=== PATIENT | male | born 1985 | race Hispanic/Latino ===

== ENCOUNTER 2016-10-05 18:29 | Emergency (ER) | payer OTHER ==
[2016-10-05 19:31] LABS: Basophils % (Auto) 1.3 % (0.0-1.8); Eosinophils % (Auto) 2.9 % (0.0-4.3); Hematocrit 45.5 % (35.5-45.6); Hemoglobin 15.9 gm/dl (11.8-15.2); Mean Corpuscular HGB Conc 35 % (32-34); Mean Corpuscular Hemoglobin 31 pg (28-32); Mean Corpuscular Volume 89 fl (84-94); Platelet Count 266 K/mm3 (140-440); Red Blood Count 5.12 M/mm3 (3.65-5.03); Red Cell Distribution Width 12.4 % (13.2-15.2)
[2016-10-05 19:49] LABS: Anion Gap 21 mmol/L; Blood Urea Nitrogen 12 mg/dL (9-20); Calcium 9.5 mg/dL (8.4-10.2); Carbon Dioxide 24 mmol/L (22-30); Chloride 96.6 mmol/L (98-107); Glucose 105 mg/dL (75-100); Potassium 3.4 mmol/L (3.6-5.0); Sodium 138 mmol/L (137-145)
[2016-10-05 21:16] LABS: Urine Drugs of Abuse Note Disclamer
[2016-10-05 21:31] LABS: Bilirubin,Urine NEG (Negative); Blood,Urine NEG (Negative); Ketones,Urine NEG (Negative); Leukocyte Esterase,Urine NEG (Negative); Nitrite,Urine NEG (Negative); Protein,Urine <15 mg/dL mg/dL (Negative); Urobilinogen,Urine < 2.0 mg/dL (<2.0)
[2016-10-05] MEDS ORDERED: TYLENOL #3 PO ONE (21:37)
[2016-10-05] MEDS ORDERED: NACL 0.9% 1000 ML 1,000 ML IV ONE (22:26)
--- NOTE | 2016-10-06 01:37 | Emergency Department Report ---
HPI - General Chief Complaint: Psych Time Seen by Provider: 10/05/16 20:57 - HPI HPI: The patient is a 31-year-old male who presents for evaluation of mental health. The patient reports experiencing sadness, severe, constant, for the past 4 days, and associated with constant severe thoughts of people from an online gambling site stalking him. The patient denies fever, headache, unexplained weight loss or weight gain, heat or cold intolerance, skin, hair, or nail changes, neuro deficits, homicidal ideations. ED Past Medical Hx - Past Medical History Hx Psychiatric Treatment: Yes Additional medical history: anxiety. psychosis. major depressive mood disorder. insomnia. paranoid schizophrenia - Surgical History Additional Surgical History: Right wrist - Social History Smoking Status: Never Smoker Substance Use Type: Alcohol - Medications Home Medications: Home Medications Medication Instructions Recorded Confirmed Last Taken Type Unobtainable 07/09/15 07/09/15 Unknown History ED Review of Systems ROS: Stated complaint: PSYCH EVAL Other details as noted in HPI Constitutional: denies: fever ENT: denies: throat or neck pain Respiratory: denies: cough, shortness of breath Cardiovascular: denies: chest pain Endocrine: denies unexplained weight loss or gain Gastrointestinal: denies: abdominal pain, nausea Genitourinary: denies: dysuria Musculoskeletal: denies: leg swelling Skin: denies: rash Neurological: denies: headache Hematological/Lymphatic: denies: easy bleeding or easy bruising Psych: reports sadness and hopelessness Physical Exam - Physical Exam Vital Signs: Vital Signs 10/05/16 10/05/16 19:07 21:37 Temperature 98.5 F Pulse Rate 81 Respiratory 18 16 Rate Blood Pressure 148/103 O2 Sat by Pulse 100 98 Oximetry Physical Exam: General: well-nourished, well-developed, no acute distress Head: Normocephalic, atraumatic Eyes: normal sclera ENT: Mucous membranes are pink and moist Neck: trachea midline, neck supple, No neck stiffness, no cervical adenopathy Respiratory: Breath sounds equal bilaterally, no wheezing, rales, or rhonchi Cardio: S1 and S2 present, no murmurs, rubs, gallops, capillary refill is brisk Abdomen: Normoactive bowel sounds, soft abdomen, no rigidity, no guarding or rebound tenderness Chest WALL/Back: No tenderness to palpation of the chest wall, no CVA tenderness with percussion Musc: No pitting edema Skin: No rash Neuro: no facial drooping, normal speech Psych: Flat affect, poor insight, patient delusional ED Course Vital Signs 10/05/16 10/05/16 19:07 21:37 Temperature 98.5 F Pulse Rate 81 Respiratory 18 16 Rate Blood Pressure 148/103 O2 Sat by Pulse 100 98 Oximetry ED Medical Decision Making - Lab Data Result diagrams: 10/05/16 19:21 10/05/16 19:21 - Medical Decision Making The patient was seen and examined by myself. The patient is placed on a slitting and shipping supervisor and continuous pulse ox. On initial evaluation, the patient was found to be in no distress. Labs are obtained. Lab results revealed elevated alcohol level of 0.10, and elevated RBC, hemoglobin, hematocrit, consistent with dehydration, and otherwise labs were grossly unremarkable. The patient is given 1 Lfluid bolus for treatment of his dehydration. The patient is medically clear. Mental health is consulted. Mental health evaluates the patient and agrees that the patient is positive for findings consistent with acute psychosis paranoia. A 1013 is completed. The patient will be admitted to a psychiatric facility once bed placement is obtained. Critical care attestation.: If time is entered above; I have spent that time in minutes in the direct care of this critically ill patient, excluding procedure time. ED Disposition Clinical Impression: Acute psychosis, Dehydration, Hypertensive urgency Disposition: DC/TX PSY HOSP/PSY UNIT Is pt being admited?: No Does the pt Need Aspirin: No Condition: Stable Referrals: PRIMARY CARE [Primary Care Provider] - 3-5 Days Time of Disposition: 01:41
[2016-10-06] MEDS ORDERED: TYLENOL PO PRN (01:45)
[2016-10-06] MEDS ORDERED: MILK OF MAGNESIA PO PRN (01:45)
[2016-10-06] MEDS ORDERED: ALUM-MAG HYDROX-SIMETH 200-200-20MG/5ML PO PRN (01:45)
[2016-10-06] MEDS: NORVASC PO SCH ×2 (02:33→10:16)
--- NOTE | 2016-10-06 10:29 | XRay Report ---
AP CHEST: HISTORY: chest pain AP view of the chest demonstrates a normal mediastinal and cardiac contour with clear lungs and normal bony and soft tissue structures. IMPRESSION: Unremarkable AP chest.
--- NOTE | 2016-10-06 15:37 | Consultation ---
History of Present Illness - Reason for Consult Consult date: 10/06/16 Reason for consult: psychiatric evaluation, psychosis - Chief Complaint Chief complaint: "I get agitated easily" The patient is a 31-year-old disheveled white male seen in the ED for psychiatric evaluation. The record indicates the patient reported sadness, severe, constant, for the past 4 days, and associated with constant severe thoughts of people from an online gambling site stalking him. When asked about the gambling site, he states "That's real, they don't want to make themselves known." He states people follow him and taunt him. He reports becoming agitated easily and will hit objects. He has been to correction for violent behavior in the past. He reports drinking alcohol once every 2 weeks and denies illicit substance use. He reports lack of access to food/money. He has been to more than 10 hospitals for crisis stabilization in [place]. ED Past Medical Hx - Past Medical History denies - Surgical History Additional Surgical History: Right wrist - Social History Smoking Status: 1/2 PPD Substance Use Type: Alcohol every 2 weeks-no withdrawal -Psychiatric history multiple psychiatric hospitalizations Medications and Allergies Allergies Allergy/AdvReac Type Severity Reaction Status Date / Time No Known Allergies Allergy Unverified 07/09/15 18:03 Home Medications Medication Instructions Recorded Confirmed Last Taken Type Unobtainable 10/06/16 10/06/16 Unknown History Active Meds: Active Medications Acetaminophen (Tylenol) 650 mg PO Q4HR PRN PRN Reason: Pain MILD(1-3)/Fever >100.5/MORE[place] Al Hydrox/Mg Hydrox/Simethicone (Alum-Mag Hydrox-Simeth [id number]/5ml) 30 ml PO Q4HR PRN PRN Reason: Indigestion Amlodipine Besylate (Norvasc) 5 mg PO QDAY [facility] Last Admin: 10/06/16 10:16 Dose: Not Given Magnesium Hydroxide (Milk Of Magnesia) 30 ml PO Q12HR PRN PRN Reason: Constipation Mental Status Exam - Vital signs Last Vital Signs Temp 98.5 F 10/06/16 09:52 Pulse 75 10/06/16 10:16 Resp 18 10/06/16 09:52 BP 114/74 10/06/16 10:16 Pulse Ox 98 10/06/16 09:52 - Exam Orientation: time, place, person Affect: flat, depressed Mood: congruent with affect Thought content: delusions, paranoia Thought Process: Loose Associations Perceptions: auditory ("voices off and on") Speech: normal rate and pattern Concentration: distractible Motor activity: tense Level of consciousness: alert Memory: Intact Sleep Symptoms: Difficulty Falling Asleep Appetite: decreased Interaction: cooperative Results Result Diagrams: 10/05/16 19:21 10/05/16 19:21 Abnormal lab results 10/05/16 10/05/16 10/05/16 Range/Units 19:21 19:21 21:10 WBC 12.0 H (4.5-11.0) K/mm3 RBC 5.12 H (3.65-5.03) M/mm3 Hgb 15.9 H (11.8-15.2) gm/dl MCHC 35 H (32-34) % RDW 12.4 L (13.2-15.2) % Baso # 0.2 H (0.0-0.1) K/mm3 Seg Neutrophils # 7.8 H (1.8-7.7) K/mm3 Glucose 105 H (75-100) mg/dL Ur Specific [place] 1.002 L (1.003-1.030) Plasma/Serum Alcohol (0-0.07) gm% 10/05/16 Range/Units 21:32 WBC (4.5-11.0) K/mm3 RBC (3.65-5.03) M/mm3 Hgb (11.8-15.2) gm/dl MCHC (32-34) % RDW (13.2-15.2) % Baso # (0.0-0.1) K/mm3 Seg Neutrophils # (1.8-7.7) K/mm3 Glucose (75-100) mg/dL Ur Specific [place] (1.003-1.030) Plasma/Serum Alcohol 0.11 H (0-0.07) gm% All other labs normal. Assessment and Plan Assessment and plan: Impression: Acute depressive symptoms with high risk of harm to self as evidenced by SI and psychotic symptoms Inability to care self Schizophrenia, paranoid type-unclear if he is med compliant alcohol use-no clear criteria for alcohol use disorder Recommendation: 1013 and transfer to inpatient psychiatric facility Start Risperdal 1mg hs for mood/psychotic symptoms trazodone 50mg hs for insomnia Ativan 0.5mg bid per home dose
[2016-10-06] MEDS: ATIVAN PO SCH (22:00)
[2016-10-06] MEDS: DESYREL PO SCH (22:00)
[2016-10-06] MEDS: RisperDAL PO SCH (22:01)
[2016-10-07] MEDS ORDERED: NACL 0.9% 500 ML 500 ML IV ONE (00:16)
--- NOTE | 2016-10-07 09:16 | Progress Note ---
Subjective - Reason for Consult Consult date: 10/07/16 Reason for consult: Psychiatry Follow-up - Chief Complaint Chief complaint: "I feel safe now" The patient is a 31-year-old disheveled white male seen in the ED for psychiatric evaluation. Today patient is calm and cooperative during the assessment. He stated that he feel "safe today," but the stalking may continue. He continue to state that personnel from a gambling site are out to harm him. He stated this has been an issue for weeks. He would look around during our conversation, possibly responding to some type of stimuli. He could not tell me if he was still suicidal, but denies HI's and AVH's. He denies sleep disturbance or a poor appetite. He stated that his sadness has been an issues for years. He has been to more than 10 hospitals for crisis stabilization in [place]. He stated that the drinking of alcohol is a "new thing." Mental Status Exam - Vital signs Last Vital Signs Temp 97.9 F 10/06/16 19:55 Pulse 62 10/06/16 19:55 Resp 18 10/06/16 19:55 BP 108/69 10/06/16 19:55 Pulse Ox 97 10/06/16 19:55 - Exam Narrative exam: MSE: Appearance: cooperative, calm Behavior: good eye contact Speech: regular rate and tone Mood: "okay" Affect: congruent to mood Thought Process: circumstantial Thought Content: denies SI/HI's and AVH's, delusional Motor Activity: lying in bed Cognition: a/ox 3 Insight: limited Judgment: limited Assessment and Plan Impression: Acute depressive symptoms with high risk of harm to self as evidenced by SI and psychotic symptoms. Inability to care self. Schizophrenia, paranoid type-unclear if he is med compliant. The patient is a 31-year-old disheveled white male seen in the ED for psychiatric evaluation. Today patient is calm and cooperative during the assessment. He stated that he feel "safe today," but the stalking may continue. He continue to state that personnel from a gambling site are out to harm him. He stated this has been an issue for weeks. He denies HI's and AVH's. Recommendation/Plan: Continue 1013 and transfer to inpatient psychiatric facility. Continue Risperdal 1mg hs for mood/psychotic symptoms, trazodone 50mg hs for insomnia/depression, and Ativan 0.5mg bid per home dose. Discussed possible suicidality, medication induced keven, and priapism with patient reference trazodone.
[2016-10-07] MEDS: NORVASC PO SCH (11:21)
[2016-10-07] MEDS: ATIVAN PO SCH ×2 (11:21→21:59)
[2016-10-07] MEDS ORDERED: HABITROL TD ONE (20:44)
[2016-10-07] MEDS: DESYREL PO SCH (21:59)
[2016-10-07] MEDS: RisperDAL PO SCH (21:59)
--- NOTE | 2016-10-08 09:14 | Progress Note ---
Subjective - Reason for Consult Consult date: 10/08/16 Reason for consult: Psychiatry Follow-up - Chief Complaint Chief complaint: "They are stalking me" The patient is a 31-year-old disheveled white male seen in the ED for psychiatric evaluation. Today patient is calm, cooperative but delusional during the assessment. He is still anxious about being stalked by personnel from a gambling site online. He stated this has been going on for 3 years and he is tired of it. He stated that he filed a lawsuit against this company. He could not tell me the name of this company or who is involved. He denies SI/HI's , AVH's, or depression symptoms. During conversation patient had poor eye contact. Mental Status Exam - Vital signs Last Vital Signs Temp 98.0 F 10/08/16 08:01 Pulse 60 10/08/16 08:01 Resp 16 10/08/16 08:02 BP 115/59 10/08/16 08:01 Pulse Ox 100 10/08/16 08:02 - Exam Narrative exam: MSE: Appearance: cooperative, calm Behavior: good eye contact Speech: regular rate and tone Mood: "okay" Affect: congruent to mood Thought Process: circumstantial Thought Content: denies SI/HI's and AVH's, delusional Motor Activity: lying in bed Cognition: a/ox 3 Insight: limited Judgment: limited Assessment and Plan Impression: Acute depressive symptoms with high risk of harm to self as evidenced by SI and psychotic symptoms. Inability to care self. Schizophrenia, paranoid type-unclear if he is med compliant. He is still anxious about being stalked by personnel from a gambling site online. He stated this has been going on for 3 years and he is tired of it. He stated that he filed a lawsuit against this company. He could not tell me the name of this company or who is involved. He denies SI/HI's and AVH's. Recommendation/Plan: Continue 1013 and transfer to inpatient psychiatric facility. Modify Risperdal 2mg hs for mood/psychotic symptoms, continue trazodone 50mg hs for insomnia/depression, and Ativan 0.5mg bid per home dose. Discussed possible suicidality, medication induced keven, and priapism with patient reference trazodone.
[2016-10-08] MEDS: ATIVAN PO SCH ×2 (09:31→21:47)
[2016-10-08] MEDS: NORVASC PO SCH (09:31)
[2016-10-08] MEDS: DESYREL PO SCH (21:49)
[2016-10-08] MEDS ORDERED: RisperDAL PO SCH (22:00)
[2016-10-09 08:43] VITALS: BP 108/65
--- NOTE | 2016-10-09 09:32 | Progress Note ---
Subjective - Reason for Consult Consult date: 10/09/16 Reason for consult: Psychiatry Follow-up - Chief Complaint Chief complaint: "They are still stalking me" The patient is a 31-year-old disheveled white male seen in the ED for psychiatric evaluation. Today patient is calm, cooperative but delusional during the assessment. He continue to state that personnel from a gambling site online is stalking him. He feel that the stalking want ever stop. I asked him to describe the stalker, he could not. He denies SI/HI's, AVH's, or depression symptoms. Mental Status Exam - Vital signs Last Vital Signs Temp 97.9 F 10/09/16 08:42 Pulse 58 L 10/09/16 08:42 Resp 16 10/09/16 08:44 BP 108/65 10/09/16 08:42 Pulse Ox 97 10/09/16 08:44 - Exam Narrative exam: MSE: Appearance: cooperative, calm Behavior: good eye contact Speech: regular rate and tone Mood: "I feel fine" Affect: congruent to mood Thought Process: circumstantial Thought Content: denies SI/HI's and AVH's, delusional Motor Activity: lying in bed Cognition: a/ox 3 Insight: limited Judgment: limited Assessment and Plan Impression: Schizophrenia, paranoid type. He is still anxious about being stalked by personnel from a gambling site online. He stated this has been going on for 3 years and he is tired of it. He stated that he filed a lawsuit against this company. He could not tell me the name of this company or who is involved. He denies SI/HI's and AVH's. Patient is still delusional about being stalked. Recommendation/Plan: Continue 1013 and transfer to inpatient psychiatric facility. Modify Risperdal to 3 mg hs for mood/psychotic symptoms, continue trazodone 50mg hs for insomnia/depression, and Ativan 0.5mg bid per home dose. Discussed possible suicidality, medication induced keven, and priapism with patient reference trazodone.
[2016-10-09] MEDS: NORVASC PO SCH (09:44)
[2016-10-09] MEDS: ATIVAN PO SCH ×2 (09:44→22:31)
[2016-10-09] MEDS ORDERED: RisperDAL PO SCH (22:00)
[2016-10-09] MEDS: DESYREL PO SCH (22:32)
== END 2016-10-09 22:44 ==
LOC: ED 18:29 → EEVIPCON 18:29 → ED 10-09 22:44
DX: F23 Brief psychotic disorder (principal); E86.0 Dehydration; I16.0 Hypertensive urgency; F32.9 Major depressive disorder, single episode, unspecified; F20.0 Paranoid schizophrenia
CPT/HCPCS: 36415; 71010; 80048; 80307; 81001; 84484; 85025; 96360; 99285; G0480; J7030; 80320; J1815

== ENCOUNTER 2017-04-01 15:16 | Emergency (ER) | payer OTHER ==
--- NOTE | 2017-04-01 16:40 | Emergency Department Report ---
Chief Complaint: Psych Stated Complaint: MENTAL HEALTH EVALUATION Time Seen by Provider: 04/01/17 16:38 - HPI History of Present Illness: pt is a 32 y/o w/m hx depress schizophrenia who presents for generalized depression no SI no HI, Does hear muffled voices, "I cant sleep for past 3 days " pt denies si or hi last xanax: 3 days ago denies substance this week no symptoms of withdrawal requesting evaluation. - Exam Vital Signs: Vital Signs 04/01/17 16:12 Temperature 98.4 F Pulse Rate 86 Respiratory 16 Rate Blood Pressure 127/86 O2 Sat by Pulse 98 Oximetry MSE screening note: Focused history and physical exam performed. Due to findings the following was ordered: ED Disposition for MSE Condition: Stable
[2017-04-01 20:53] LABS: Basophils % (Auto) 0.9 % (0.0-1.8); Hematocrit 42.5 % (35.5-45.6); Mean Corpuscular HGB Conc 35 % (32-34); Mean Corpuscular Hemoglobin 33 pg (28-32); Mean Corpuscular Volume 94 fl (84-94); Platelet Count 242 K/mm3 (140-440); Red Blood Count 4.53 M/mm3 (3.65-5.03); White Blood Count 11.3 K/mm3 (4.5-11.0)
[2017-04-01 20:59] LABS: Alanine Aminotransferase 14 units/L (7-56); Albumin 4.8 g/dL (3.9-5); Albumin/Globulin Ratio 1.8 %; Alkaline Phosphatase 65 units/L (35-129); Anion Gap 20 mmol/L; BUN/Creatinine Ratio 12; Blood Urea Nitrogen 12 mg/dL (9-20); Calcium 9.1 mg/dL (8.4-10.2); Carbon Dioxide 25 mmol/L (22-30); Glucose 90 mg/dL (75-100); Potassium 3.4 mmol/L (3.6-5.0); Sodium 141 mmol/L (137-145); Total Protein 7.4 g/dL (6.3-8.2)
[2017-04-02 04:53] LABS: Urine Drugs of Abuse Note Disclamer
[2017-04-02 05:02] LABS: Bilirubin,Urine NEG (Negative); Blood,Urine NEG (Negative); Ketones,Urine TR mg/dL (Negative); Leukocyte Esterase,Urine NEG (Negative); Mucus,Urine FEW /HPF; Nitrite,Urine NEG (Negative)
--- NOTE | 2017-04-02 07:13 | Emergency Department Report ---
HPI - General Chief Complaint: Psych Time Seen by Provider: 04/01/17 16:38 - HPI HPI: This is a 32-year-old male who presents to the emergency department with complaint of needing a refill of his psychiatric medications. These medications include Seroquel, Ativan, Celexa, Elavil and Adderall. He states that he has been out of these medications for at least a few months. He has been having trouble sleeping and sometimes been having some abnormal thoughts, although he cannot describe them. He does admit to some auditory hallucinations in which he hears "muffled sounds." He denies any current visual hallucinations. He denies any homicidal or suicidal ideations. He does not have a primary care physician or psychiatrist. He has a past psychiatric history of schizophrenia and anxiety. No recent travel or sick contacts at home. He denies any illicit drug use but does admit to some drinking last night. ED Past Medical Hx - Past Medical History Previous Medical History?: Yes Hx Psychiatric Treatment: Yes Additional medical history: anxiety. psychosis. major depressive mood disorder. insomnia. paranoid schizophrenia - Surgical History Past Surgical History?: Yes Additional Surgical History: Right wrist - Social History Smoking Status: Current Every Day Smoker Substance Use Type: Alcohol - Medications Home Medications: Home Medications Medication Instructions Recorded Confirmed Last Taken Type Unobtainable 10/06/16 10/06/16 Unknown History ED Review of Systems ROS: Stated complaint: MENTAL HEALTH EVALUATION Other details as noted in HPI Comment: All other systems reviewed and negative Constitutional: denies: chills, fever Eyes: denies: eye pain, eye discharge, vision change ENT: denies: ear pain, throat pain Respiratory: denies: cough, shortness of breath, wheezing Cardiovascular: denies: chest pain, palpitations Gastrointestinal: denies: abdominal pain, nausea, diarrhea Genitourinary: denies: urgency, dysuria Musculoskeletal: denies: back pain, joint swelling, arthralgia Skin: denies: rash, lesions Neurological: denies: headache, weakness, paresthesias Psychiatric: auditory hallucinations. denies: homicidal thoughts, suicidal thoughts Physical Exam - Physical Exam Vital Signs: Vital Signs 04/01/17 04/02/17 04/02/17 16:12 00:04 05:12 Temperature 98.4 F 98.1 F 98.9 F Pulse Rate 86 99 H 98 H Respiratory 16 18 16 Rate Blood Pressure 127/86 141/82 Blood Pressure 140/93 [Right] O2 Sat by Pulse 98 96 98 Oximetry 04/02/17 06:20 Temperature Pulse Rate Respiratory 18 Rate Blood Pressure Blood Pressure [Right] O2 Sat by Pulse 99 Oximetry Physical Exam: GENERAL: The patient is well-developed well-nourished. HENT: Normocephalic. Atraumatic. Patient has moist mucous membranes. EYES: Extraocular motions are intact. Pupils equal reactive to light bilaterally. NECK: Supple. Trachea is midline. CHEST/LUNGS: Clear to auscultation. There is no respiratory distress noted. HEART/CARDIOVASCULAR: Regular. There is no tachycardia. There is no gallop rub or murmur. ABDOMEN: Abdomen is soft, nontender. Patient has normal bowel sounds. There is no abdominal distention. SKIN: Skin is warm and dry. NEURO: The patient is awake, alert, and oriented. The patient is cooperative. The patient has no focal neurologic deficits. The patient has normal speech. MUSCULOSKELETAL: There is no tenderness or deformity. There is no limitation range of motion. There is no evidence of acute injury. PSYCH: Patient has a flat affect. ED Course Vital Signs 04/01/17 04/02/17 04/02/17 16:12 00:04 05:12 Temperature 98.4 F 98.1 F 98.9 F Pulse Rate 86 99 H 98 H Respiratory 16 18 16 Rate Blood Pressure 127/86 141/82 Blood Pressure 140/93 [Right] O2 Sat by Pulse 98 96 98 Oximetry 04/02/17 06:20 Temperature Pulse Rate Respiratory 18 Rate Blood Pressure Blood Pressure [Right] O2 Sat by Pulse 99 Oximetry ED Medical Decision Making - Lab Data Result diagrams: 04/01/17 20:28 04/01/17 20:28 - Medical Decision Making The patient originally complained to me about insomnia and did admit to some auditory and occasional visual hallucinations. First he denied any suicidal ideations. He had a evaluation by the psychiatric nurse practitioner who was then able to elicit the patient does have some current suicidal ideations and the patient was made a 1013. His labs are mostly unremarkable except for positive amphetamines on urine drug screen which could be related to his Adderall use. Vital signs stable. Otherwise the patient appears medically cleared for psychiatric placement. - Differential Diagnosis schizophrenia, bipolar disorder, depression, substance abuse Critical Care Time: No Critical care attestation.: If time is entered above; I have spent that time in minutes in the direct care of this critically ill patient, excluding procedure time. ED Disposition Clinical Impression: Suicidal ideations Depression Qualifiers: Depression Type: unspecified Qualified Code(s): F32.9 - Major depressive disorder, single episode, unspecified Schizophrenia Qualifiers: Schizophrenia type: unspecified Qualified Code(s): F20.9 - Schizophrenia, unspecified Disposition: DC/TX-65 PSY HOSP/PSY UNIT Is pt being admited?: No Condition: Stable Referrals: PRIMARY CARE [Primary Care Provider] - 3-5 Days Time of Disposition: 09:32
[2017-04-02] MEDS ORDERED: HALDOL IM ONE (10:58)
[2017-04-02] MEDS ORDERED: HALDOL ONE (11:01)
--- NOTE | 2017-04-02 17:03 | Consultation ---
History of Present Illness - Reason for Consult Consult date: 04/02/17 Reason for consult: Mental Health Evaluation Requesting physician: LUIS CHASE - Chief Complaint Chief complaint: "I have not slept" - History of Present Psychiatric Illness This is a 32-year-old male who presents to the emergency department with complaint of needing a refill of his psychiatric medications. This patient is known to me. Today the patient is calm, but withdrawn and disorganized during the assessment. He stated that he have not slept for days and that the voices in his ears are "muffled." He also stated seeing "spots." He stated that the voices are "overwhelming." When asked about being suicidal he stated, "Yes. " He denies having a plan for suicide. He stated that he been drinking (etoh) more the last few weeks. He stated that he have not been compliant with his medications. He could not tell me the medications he takes. The patient was observed wandering around the ER and had to be redirect to his room. He denies HI's. He denies recreational drug use. He is positive for amphetamines. He stated that he was prescribed Adderall by a doctor. Medications and Allergies Allergies Allergy/AdvReac Type Severity Reaction Status Date / Time No Known Allergies Allergy Unverified 07/09/15 18:03 Home Medications Medication Instructions Recorded Confirmed Last Taken Type Unobtainable 10/06/16 04/03/17 Unknown History Past psychiatric history - Past Medical History Past Medical History: No medical history, other Past Surgical History: No surgical history - past Psychiatric treatment and history psychiatric treatment history: Multiple inpatient psy settings. Denies a fam psy hx. - Social History Social history: lives with family Mental Status Exam - Vital signs Last Vital Signs Temp 98.9 F 04/02/17 05:12 Pulse 98 H 04/02/17 05:12 Resp 18 04/02/17 06:20 BP 140/93 04/02/17 05:12 Pulse Ox 99 04/02/17 06:20 - Exam Narrative exam: MSE: Appearance: calm, cooperative Behavior: regular eye contact Speech: regular rate and tone Mood: withdrawn Affect: congruent to mood Thought Process: circumstantial Thought Content: denies HI's, disorganized Motor Activity: ambulatory Cognition: A/O x3 Insight: limited Judgment: limited Results Result Diagrams: 04/01/17 20:28 11/27/17 20:28 Abnormal lab results 04/01/17 04/01/17 04/01/17 Range/Units 20:28 20:28 20:30 WBC 11.3 H (4.5-11.0) K/mm3 MCH 33 H (28-32) pg MCHC 35 H (32-34) % RDW 13.0 L (13.2-15.2) % [place] % (Auto) 8.2 H (0.0-7.3) % [place] # 0.9 H (0.0-0.8) K/mm3 Potassium 3.4 L (3.6-5.0) mmol/L Plasma/Serum Alcohol 0.10 H (0-0.07) gm% All other labs normal. Assessment and Plan Assessment and plan: Impression: Insomnia. Alcohol Use DO. Today the patient is calm, but withdrawn and disorganized during the assessment. Patient experiencing perceptional disturbances. No acute withdrawals noted (etoh). DDx: R/O Schizophrenia, R/O Bipolar Recommendation/Plan: Continue 1013 with placement to inpatient psy services. Start Remeron 15 mg PO HS for sleep consolidation. Will reassess patient in 24 hour to determine other possible dx's (patient has not slept for several days).
[2017-04-02] MEDS ORDERED: REMERON PO SCH (22:00)
--- NOTE | 2017-04-03 15:27 | Progress Note ---
Subjective - Reason for Consult Reason for consult: insomnia - Chief Complaint Chief complaint: "I have not slept" Mental Status Exam - Vital signs Last Vital Signs Temp 98.3 F 04/03/17 08:42 Pulse 87 04/03/17 08:42 Resp 15 04/03/17 08:42 BP 120/82 04/03/17 08:42 Pulse Ox 97 04/03/17 08:42 Assessment and Plan Presented due to several days of not being able to go to sleep. Since the patient has been in the ER, patient has had an improvement in sleep. It appears that he has been started on Remeron at bedtime to help with sleep. Patient notes that he has historically been on the medication trazodone and Seroquel. At the current time we have not reinitiated the medication regimen. At the current time, patient is not exhibiting symptoms of psychosis or keven. Patient does not appear to be delusional in a manner that keeps him from being able to take care of his own basic daily needs. Furthermore, patient is not a risk of harm to self or others as evidenced by a lack of a consistent expression of suicidal or homicidal thoughts. Patient has engaged with the nursing staff and clinical staff in the hospital without difficulty. Furthermore patient is having a discussion as if he is interested in the future and thinking about how to maintain an ongoing stable mood state with stable sleep wake cycle patterns. Consequently, it is the opinion of this clinician at the patient is no longer meeting criteria to continue on a 1013 and involuntary psychiatric hold. General Appearance: dressed in a hospital gown, no acute distress Sensorium/Consciousness: alert and responding to external stimuli; clear Orientation: person, place, time and situation Eye Contact: fair Attitude / Behavior: cooperative Psychomotor & Musculoskeletal Activity: WNL Mood: ok Affect: constricted Speech / Language: fluent, with normal rate/rhythm/tone Thought Processes: organized, logical, linear Thought Content: no SI/HI Perception: no AVH Insight: fair Judgement: fair Capacity for ADLs: independent Plan: Discontinue 1013, as the patient longer meets criteria Provide patient with a prescription of Remeron 15 mg at bedtime Patient to follow-up with outpatient services. It appears that there may be an acting that is involved. If so, acting should be notified at the time of discharge.
--- NOTE | 2017-04-03 21:57 | Event Note ---
Date: 04/03/17 Evaluated Clifford Lassiter patient is not having any suicidal ideation or any homicidal ideation. Patient states that he will stay on his uncle's place. He expresses clear goal-directed behavior and I will resend 1013 per psychiatry's recommendation and I will send him home on 15 mg of Remeron at night. Discussed plan with patient patient agrees to plan additional verbal discharge instructions were given.
[2017-04-04 06:25] VITALS: BP 124/64
== END 2017-04-03 20:50 ==
LOC: EEVIPCON 15:16 → ED 15:16
DX: F32.9 Major depressive disorder, single episode, unspecified (principal); F20.9 Schizophrenia, unspecified; F17.200 Nicotine dependence, unspecified, uncomplicated
CPT/HCPCS: 36415; 80053; 80307; 81001; 85025; 96372; 99285; G0480; J1630; 80320